=== PATIENT | male | born 1965 | race Caucasian/White ===

== ENCOUNTER 2024-03-22 11:52 | Emergency (ER) | payer BC ==
[2024-03-22] MEDS ORDERED: Lidocaine 4% Patch ONE (12:30)
[2024-03-22 12:53] LABS: Bacteria/HPF 2+ HPF (None Seen); Bilirubin Negative (Negative); Blood, Urine Negative (Negative); CAUTI Indications for Culture Dysuria,urgency,freq; Clarity Slightly Cloudy (Clear); Glucose, Urine (Dipstick) Negative (Negative); Ketone, Urine Negative (Negative); Leukocyte Small (Negative); Nitrite Positive (Negative); Protein, Urine (Dipstick) Negative (Neg-Trace); RBC/HPF 0-3 HPF (0-3); Squamous Epithelial 0-3 HPF (0-3); Urobilinogen 0.2 mg/dL (Less than 2); WBC/HPF 21-50 HPF (0-3)
[2024-03-22 12:54] LABS: Urine Culture Reflex Yes Yes
[2024-03-22] MEDS ORDERED: Lidocaine 1% PF 5 ML VIAL ONE (13:08)
[2024-03-22] MEDS ORDERED: cefTRIAXone (ROCEPHIN) 1 GM VIAL ONE (13:08)
[2024-03-22 13:34] LABS: Hematocrit 48.8 % (42.0-52.0); Hemoglobin 14.9 g/dL (14.0-18.0); Mean Corpuscular Volume 86.9 fl (78.0-98.0); Red Blood Cell (RBC) Count 5.61 mill/uL (4.70-6.10); White Blood Cell (WBC) Count 8.2 10x3/uL (4.8-10.8)
[2024-03-22 13:35] LABS: Manual Diff?? YES; Mean Corpuscular HGB CONC 30.5 g/dL (32.0-36.0); Mean Corpuscular Hemoglobin 26.5 pg (27.0-31.0); Mean Platelet Volume 8.4 fL (7.4-10.4); Platelet Count 441 10x3/uL (130-400); RBC Distribution Width 14.1 % (11.5-14.5); Troponin I Less than 0.010 ng/mL (< 0.028)
[2024-03-22 13:36] LABS: Band 1 % (5-11); Eosinophils 1 % (0-10); Lymphocytes 35 % (21-51); MDiff Complete? YES; Monocytes 6 % (0-10); Neutrophil 57 % (42-75)
[2024-03-22 13:37] LABS: RBC Morph Comment Within Normal Limits
[2024-03-22 13:38] LABS: ALT (SGPT) 17 U/L (Less than 45); AST (SGOT) 15 U/L (11-34); Albumin 3.5 g/dL (3.1-4.5); Alkaline Phosphatase 70 U/L (40-110); Anion Gap 11 mmol/L (10-20); BUN (Urea Nitrogen) 12 mg/dL (8.4-25.7); Bilirubin, Total 0.2 mg/dL (0.3-1.2); Calc. Creatinine Clearance 0 mL/min (70-130); Carbon Dioxide 25 mmol/L (22-29); Chloride 106 mmol/L (98-107); Estimated GFR 100; Globulin 4.1 g/dL (2.4-3.5); Glucose 92 mg/dL (70-105); Lipase 76 U/L (8-78); Platelet Adequacy Comment Appears Adequate; Potassium 4.3 mmol/L (3.5-5.1); Protein, Total 7.6 g/dL (6.0-8.3); Sodium 138 mmol/L (136-145)
== END 2024-03-22 14:32 | disposition home or self-care (01) ==
LOC: MADERS 11:52
DX: N39.0 Urinary tract infection, site not specified (principal); R33.9 Retention of urine, unspecified; F17.220 Nicotine dependence, chewing tobacco, uncomplicated
CPT/HCPCS: 71046; 80053; 81001; 83690; 84484; 85025; 87077; 87086; 96372; J0696